=== PATIENT | female | born 1965 | race Caucasian/White ===

== ENCOUNTER 2020-12-02 09:59 | Inpatient (IN) | payer OTHER ==
[2020-12-02 10:30] VITALS: BMI 29.9
[2020-12-02] MEDS ORDERED: ACETAMINOPHEN 325 MG TABLET (FP) ONE (11:06)
[2020-12-02] MEDS ORDERED: IBUPROFEN 400 MG TABLET (FP) PO PRN (11:25)
[2020-12-02] MEDS ORDERED: METHOCARBAMOL 500 MG TABLET PO PRN (11:25)
[2020-12-02] MEDS ORDERED: MENTHOL/PHENOL 1 EACH UD MM PRN (11:25)
[2020-12-02] MEDS ORDERED: MAGNESIUM CITRATE 300 ML BOTTLE PO PRN (11:25)
[2020-12-02] MEDS ORDERED: BISMUTH SUBSALICYLATE 262 MG/15 ML BTL PO PRN (11:25)
[2020-12-02] MEDS ORDERED: chlordiazePOXIDE HCL 25 MG CAPSULE PO PRN (11:25)
[2020-12-02] MEDS ORDERED: MAGNESIUM HYDROX 2400MG/30ML ORAL SUSPENSION 30 ML CUP PO PRN (11:25)
[2020-12-02] MEDS ORDERED: ONDANSETRON *ODT* 4 MG TABLET SL PRN (11:25)
[2020-12-02] MEDS ORDERED: MAG HYDROX/AL HYDROX/SIMETH 30 ML UNIT-DOSE CUP PO PRN (11:25)
[2020-12-02] MEDS ORDERED: ACETAMINOPHEN 325 MG TABLET (FP) PO PRN (11:25)
[2020-12-02] MEDS: PANTOPRAZOLE 20 MG TABLET PO SCH (12:36)
[2020-12-02] MEDS: PRENATAL VITAMINS W/ FOLIC ACID TABLET (FP) PO SCH (12:36)
[2020-12-02] MEDS: NIFEdipine E.R 60 MG TABLET PO SCH (12:36)
[2020-12-02] MEDS: hydrOXYzine PAMOATE 25 MG CAPSULE (FP) PO SCH ×3 (13:49→22:28)
[2020-12-02 14:44] LABS: HEMATOCRIT 37.6 % (32.4-45.2); MCH 31.8 pg (25.7-33.7); MCHC 34.6 g/dl (32.0-36.0); MEAN PLT VOLUME 8.1 fl (7.5-11.1); PLATELET COUNT 536 K/MM3 (134-434); RBC 4.09 M/mm3 (3.60-5.2); RDW 12.7 % (11.6-15.6); WHITE BLOOD COUNT 6.4 K/mm3 (4.0-10.0)
[2020-12-02 14:57] LABS: CALCIUM 9.2 mg/dL (8.5-10.1)
[2020-12-02 14:58] LABS: BLOOD UREA NITROGEN 15.7 mg/dL (7-18)
[2020-12-02 15:01] LABS: CREATININE 0.8 mg/dL (0.55-1.3)
[2020-12-02 15:02] LABS: BILIRUBIN,TOTAL 0.2 mg/dL (0.2-1); TOT PROT 7.3 g/dl (6.4-8.2)
[2020-12-02] MEDS: TRIAMCINOLONE ACET 0.1% OINT 15 GM TUBE TP SCH ×2 (15:35→22:28)
[2020-12-02] MEDS: metFORMIN HCL 500 MG TABLET (FP) PO SCH (16:37)
[2020-12-02] MEDS: chlordiazePOXIDE HCL 25 MG CAPSULE PO SCH ×2 (16:40→22:28)
[2020-12-02] MEDS: ACETAMINOPHEN 325 MG TABLET (FP) PO PRN (19:23)
[2020-12-02] MEDS: THIAMINE HCL 100 MG TABLET (FP) PO SCH (22:28)
[2020-12-02] MEDS: ATORVASTATIN CA 10 MG TABLET (FP) PO SCH (22:28)
[2020-12-02] MEDS: MELATONIN 5 MG TABLETS PO SCH (22:28)
[2020-12-03] MEDS: chlordiazePOXIDE HCL 25 MG CAPSULE PO SCH ×4 (06:32→22:29)
[2020-12-03] MEDS: metFORMIN HCL 500 MG TABLET (FP) PO SCH ×2 (06:32→17:53)
[2020-12-03] MEDS: hydrOXYzine PAMOATE 25 MG CAPSULE (FP) PO SCH ×5 (06:33→22:29)
[2020-12-03] MEDS: TRIAMCINOLONE ACET 0.1% OINT 15 GM TUBE TP SCH ×3 (06:33→22:29)
[2020-12-03] MEDS: ACETAMINOPHEN 325 MG TABLET (FP) PO PRN (07:08)
[2020-12-03] MEDS: PATIENT'S OWN MEDICATION (NON-FORMULARY) (Atenolol/Chlorthalidone [Atenolol-Chlorthalidone PO SCH (10:25)
[2020-12-03] MEDS: FENOFIBRIC ACID 135 MG CAP PO SCH (10:26)
[2020-12-03] MEDS: PANTOPRAZOLE 20 MG TABLET PO SCH (10:26)
[2020-12-03] MEDS: NIFEdipine E.R 60 MG TABLET PO SCH (10:26)
[2020-12-03] MEDS: PRENATAL VITAMINS W/ FOLIC ACID TABLET (FP) PO SCH (10:26)
[2020-12-03] MEDS: LOSARTAN POTASSIUM 50 MG TABLET PO SCH (10:26)
[2020-12-03] MEDS: CYANOCOBALAMIN 1,000 MCG TABLET (FP) PO SCH (10:27)
[2020-12-03] MEDS: ATORVASTATIN CA 10 MG TABLET (FP) PO SCH (22:29)
[2020-12-03] MEDS: MELATONIN 5 MG TABLETS PO SCH (22:29)
[2020-12-03] MEDS: THIAMINE HCL 100 MG TABLET (FP) PO SCH (22:29)
[2020-12-04] MEDS: metFORMIN HCL 500 MG TABLET (FP) PO SCH ×2 (06:09→17:30)
[2020-12-04] MEDS: chlordiazePOXIDE HCL 25 MG CAPSULE PO SCH ×4 (06:10→22:27)
[2020-12-04] MEDS: TRIAMCINOLONE ACET 0.1% OINT 15 GM TUBE TP SCH ×3 (06:12→22:28)
[2020-12-04] MEDS: ACETAMINOPHEN 325 MG TABLET (FP) PO PRN (06:12)
[2020-12-04] MEDS: hydrOXYzine PAMOATE 25 MG CAPSULE (FP) PO SCH ×5 (06:12→22:27)
[2020-12-04] MEDS: CYANOCOBALAMIN 1,000 MCG TABLET (FP) PO SCH (10:45)
[2020-12-04] MEDS: PATIENT'S OWN MEDICATION (NON-FORMULARY) (Atenolol/Chlorthalidone [Atenolol-Chlorthalidone PO SCH (10:45)
[2020-12-04] MEDS: LOSARTAN POTASSIUM 50 MG TABLET PO SCH (10:46)
[2020-12-04] MEDS: NIFEdipine E.R 60 MG TABLET PO SCH (10:46)
[2020-12-04] MEDS: PRENATAL VITAMINS W/ FOLIC ACID TABLET (FP) PO SCH (10:47)
[2020-12-04] MEDS: PANTOPRAZOLE 20 MG TABLET PO SCH (10:47)
[2020-12-04] MEDS: FENOFIBRIC ACID 135 MG CAP PO SCH (10:47)
[2020-12-04] MEDS: ATORVASTATIN CA 10 MG TABLET (FP) PO SCH (22:26)
[2020-12-04] MEDS: THIAMINE HCL 100 MG TABLET (FP) PO SCH (22:26)
[2020-12-04] MEDS: MELATONIN 5 MG TABLETS PO SCH (22:27)
[2020-12-05] MEDS ORDERED: chlordiazePOXIDE HCL 10 MG CAPSULE PO PRN
[2020-12-05] MEDS: chlordiazePOXIDE HCL 10 MG CAPSULE PO SCH ×4 (06:05→22:03)
[2020-12-05] MEDS: hydrOXYzine PAMOATE 25 MG CAPSULE (FP) PO SCH ×5 (06:05→22:04)
[2020-12-05] MEDS: metFORMIN HCL 500 MG TABLET (FP) PO SCH ×2 (06:05→17:36)
[2020-12-05] MEDS: TRIAMCINOLONE ACET 0.1% OINT 15 GM TUBE TP SCH ×3 (06:06→22:03)
[2020-12-05 10:07] LABS: SARS-CoV-2 NAA Not Detected (Not Detected)
[2020-12-05] MEDS: PATIENT'S OWN MEDICATION (NON-FORMULARY) (Atenolol/Chlorthalidone [Atenolol-Chlorthalidone PO SCH (10:55)
[2020-12-05] MEDS: NIFEdipine E.R 60 MG TABLET PO SCH (10:55)
[2020-12-05] MEDS: LOSARTAN POTASSIUM 50 MG TABLET PO SCH (10:55)
[2020-12-05] MEDS: PRENATAL VITAMINS W/ FOLIC ACID TABLET (FP) PO SCH (10:56)
[2020-12-05] MEDS: PANTOPRAZOLE 20 MG TABLET PO SCH (10:56)
[2020-12-05] MEDS: CYANOCOBALAMIN 1,000 MCG TABLET (FP) PO SCH (10:56)
[2020-12-05] MEDS: FENOFIBRIC ACID 135 MG CAP PO SCH (10:56)
[2020-12-05] MEDS: ATORVASTATIN CA 10 MG TABLET (FP) PO SCH (22:03)
[2020-12-05] MEDS: THIAMINE HCL 100 MG TABLET (FP) PO SCH (22:04)
[2020-12-05] MEDS: MELATONIN 5 MG TABLETS PO SCH (22:04)
[2020-12-06] MEDS: hydrOXYzine PAMOATE 25 MG CAPSULE (FP) PO SCH ×5 (06:31→22:08)
[2020-12-06] MEDS: metFORMIN HCL 500 MG TABLET (FP) PO SCH ×2 (06:31→17:28)
[2020-12-06] MEDS: chlordiazePOXIDE HCL 10 MG CAPSULE PO SCH ×2 (06:32→17:29)
[2020-12-06] MEDS: TRIAMCINOLONE ACET 0.1% OINT 15 GM TUBE TP SCH ×3 (06:32→23:47)
[2020-12-06] MEDS: ACETAMINOPHEN 325 MG TABLET (FP) PO PRN (06:33)
[2020-12-06] MEDS: PATIENT'S OWN MEDICATION (NON-FORMULARY) (Atenolol/Chlorthalidone [Atenolol-Chlorthalidone PO SCH (10:17)
[2020-12-06] MEDS: PANTOPRAZOLE 20 MG TABLET PO SCH (10:17)
[2020-12-06] MEDS: NIFEdipine E.R 60 MG TABLET PO SCH (10:17)
[2020-12-06] MEDS: PRENATAL VITAMINS W/ FOLIC ACID TABLET (FP) PO SCH (10:17)
[2020-12-06] MEDS: FENOFIBRIC ACID 135 MG CAP PO SCH (10:17)
[2020-12-06] MEDS: LOSARTAN POTASSIUM 50 MG TABLET PO SCH (10:17)
[2020-12-06] MEDS: CYANOCOBALAMIN 1,000 MCG TABLET (FP) PO SCH (10:17)
[2020-12-06] MEDS: ATORVASTATIN CA 10 MG TABLET (FP) PO SCH (22:08)
[2020-12-06] MEDS: THIAMINE HCL 100 MG TABLET (FP) PO SCH (22:08)
[2020-12-06] MEDS: MELATONIN 5 MG TABLETS PO SCH (22:08)
[2020-12-07] MEDS ORDERED: chlordiazePOXIDE HCL 10 MG CAPSULE PO ONE (05:00)
[2020-12-07] MEDS: hydrOXYzine PAMOATE 25 MG CAPSULE (FP) PO SCH (07:54)
[2020-12-07] MEDS: metFORMIN HCL 500 MG TABLET (FP) PO SCH (07:54)
[2020-12-07] MEDS: TRIAMCINOLONE ACET 0.1% OINT 15 GM TUBE TP SCH (07:55)
[2020-12-07 09:14] VITALS: BP 139/76; PULSE 82; TEMP 97.3
== END 2020-12-07 10:30 | disposition home or self-care (01) | DRG 775 ==
LOC: YASAS 09:59 → Y6N 11:53
PROVIDERS: ADMIT Allergy & Immunology; ATTEND Allergy & Immunology
PROC: HZ2ZZZZ Detoxification Services for Substance Abuse Treatment (ICD-10-PCS; principal; 2020-12-02)
DX: F10.230 Alcohol dependence with withdrawal, uncomplicated (principal); I10 Essential (primary) hypertension; E78.5 Hyperlipidemia, unspecified; E11.9 Type 2 diabetes mellitus without complications; Z79.84 Long term (current) use of oral hypoglycemic drugs; K21.9 Gastro-esophageal reflux disease without esophagitis; L40.9 Psoriasis, unspecified; Z87.891 Personal history of nicotine dependence; Z98.84 Bariatric surgery status
CPT/HCPCS: 36415; 80053; 82962; 85027; 86780; 93005; 93010; C9803; U0003; U0005